=== PATIENT | female | born 1955 | race Caucasian/White ===

== ENCOUNTER → 2017-02-11 | Outpatient (CLI) | payer BC ==
[~2017-02-11] MED LIST: ASCA500 PO; ASPEC325 PO; MULT-506 PO; SNK PO; TRAM-10 PO
== END | disposition home or self-care (01) ==
LOC: C.CPL 14:35
DX: M25.562 Pain in left knee (principal)

== ENCOUNTER 2020-07-18 07:20 | Observation (INO) ==
--- NOTE | 2020-07-12 12:59 | History & Physical Report ---
Date of Service July 12, 2020 date of surgery: 07/18/20 Procedure: Right Knee Total Knee Arthroplasty Assessment & Plan (1) Arthritis of right knee: Risks and benefits of procedure discussed in detail today, patient would like to proceed with a Right total knee replacement at [facility] as scheduled. will obtain medical clearance from Dr Vaughn prior to surgery as well as obtain PATs at [facility]. Will place on ASA 81mg po bid x 1 month post op, f/u 2 weeks post op for routine post-operative care and x-ray, sooner if having any problems. will make arrangements for HHPT at the time of discharge. At this point in time, has failed conservative measures and would like to proceed with surgical intervention. The risks and benefits have been discussed including, but not limited to, risk of infection, nerve injury, stiffness, loss of motion, failure to improve, etc. Reasonable outcomes and options of treatment were discussed. An explanation of appropriate alternatives to the procedure that may be advantageous were discussed and their risks and benefits, as well as the risks and benefits of not proceeding with treatment. I offered to answer any additional inquiries concerning the treatment involved. All the patient's questions were answered. The patient is agreeable, understanding of the treatment plan and alternatives, and wishes to proceed with the treatment plan. History of Present Illness Chief Complaint: Right knee pain Primary Care Provider: Silvino Garcia MD Ms Ware is a 64 year old female who complains of right knee pain, presents for pre-op eval prior to a Right total knee replacement. She presents with pain and stiffness on the right side. She states that the symptoms have been chronic non- traumatic and states that the symptoms are moderate-severe. The pain is described as aching, sharp, shooting and throbbing. The symptoms are aggravated by ascending stairs, daily activities, kneeling, repetitive activities, sleeping on the affected side, squatting, standing, walking, weight bearing and work activities. In addition to right knee pain the patient is also experiencing clicking, crepitus, cracking, decreased mobility, difficulty bending, difficulty going to sleep, limping, nighttime awakening, pain, stiffness, tenderness and weakness. Prior NSAIDs include ibuprofen. Patient has had arthroscopic surgery Allergies Allergy/AdvReac Type Severity Reaction Status Date / Time Sulfa (Sulfonamide Allergy Mild Rash, Verified 06/22/20 14:38 Antibiotics) flushed feeling Home Medications Medication Instructions Recorded Confirmed Type ascorbic acid (vitamin C) [Vitamin 1 g PO QAM 05/04/20 06/22/20 History C] ibuprofen 800 mg PO BID PRN 05/04/20 06/22/20 History multivitamin 1 tab PO QAM 05/04/20 06/22/20 History Past Med/Surg History Medical History Arthritis History of hypothyroidism Obesity Surgical History History of appendectomy History of arthroscopy R/L knee History of colonoscopy History of hip surgery Right hip revision: 06/07/15: SAB x1 attempt at [facility] History of tonsillectomy History of total hip arthroplasty R/L Family History Father Family history of diabetes mellitus Other No family history of adverse response to anesthesia Social History Smoking Status: Never smoker Second Hand Exposure: Yes (in childhood); Do You Dip or Chew Tobacco: No; Tobacco Cessation Education Requested by Patient: No Hx Alcohol Use: No Hx Substance Use: No Preferred Language: Macedonian Communication Ability: Effective Clean Room Technician Required: No Beliefs That Will Affect Care: None Current Living Situation: Spouse Other Information That Helps Us Care for You: No Feels Safe at Home: Yes Safety Concerns: Feels Safe At This Time Assistive Devices: None Review of Systems Review of Systems: All systems reviewed & are unremarkable except as noted in HPI & below Constitutional: no fever, no chills and no sweats Respiratory: no cough and no dyspnea Cardiovascular: no chest pain, no dyspnea and no orthopnea Gastrointestinal: no abdominal pain, no nausea and no vomiting Musculoskeletal: as per Subjective / HPI Physical Exam Physical Exam: HT: 5ft 2in WT: 88.2kg BP: 138/80 Constitutional: WD/WN, vitals as above no acute distress Respiratory: normal respiratory effort, lungs clear to auscultation no respiratory distress, no labored breathing and does not use accessory muscles Cardiovascular: RRR, no murmur, no edema Gastrointestinal (Abdomen): normal bowel sounds, soft, nontender, no hepatosplenomegaly Musculoskeletal: Knee: + knee abnormal to inspection (Right Knee- ), + effusion (+1 effusion), + limited ROM of knee (ROM 0/3/110), + knee ROM with crepitation, + joint line tenderness (medial joint line) and + Gely's sign positive; no deformity, no skin erythema, no ecchymosis, no valgus laxity, no varus laxity, anterior drawer test negative, Loco's sign negative and pivot shift test negative Results & Data Results & Data ([facility]) Diagnostic Findings right knee xray showing complete loss joint space lateral compartment and patellofemoral joint with overall valgus alignment, there is also narrowing of the medial compartment. there is osteophyte formation, subchondral sclerosis noted, no loose bodies, no acute bony pathology. Large bone cyst noted proximal tibia near articular surface. overall impression tricompartmental degenerative changes to the right knee.
--- NOTE | 2020-07-13 09:28 | Anesthesiology Consultation ---
Date of Service July 13, 2020 Assessment & Plan (1) Encounter for pre-operative examination: Case initially scheduled for 06/12/20, and patient seen by Melanie Minaya PA-C in [facility] on 05/11/20. Case R/S due to COVID-19 surge capacity protocol. COVID Status: As of 06/21 nurse assessment, patient denies travel to endemic area, known exposure/sick contacts, or symptoms of COVID19. Preoperative COVID19 testing completed on 07/11 at [facility]. Chart Review Chart Review: Acceptable Risk for Surgery History Surgery Operation Date: 07/18/20 11:35 Proposed Procedures p Right Knee Total Knee Arthroplasty - Som Baumann DO Height/Weight Height: 5 ft 2 in Weight: 87.99 kg Allergies Allergy/AdvReac Type Severity Reaction Status Date / Time Sulfa (Sulfonamide Allergy Mild Rash, Verified 06/22/20 14:38 Antibiotics) flushed feeling Medications Home Medications Medication Instructions Recorded Confirmed Last Taken ascorbic acid (vitamin C) [Vitamin 1 g PO QAM 05/04/20 06/22/20 Unknown C] ibuprofen 800 mg PO BID PRN 05/04/20 06/22/20 Unknown multivitamin 1 tab PO QAM 05/04/20 06/22/20 Unknown Past Medical History Medical History Arthritis History of hypothyroidism Obesity Past Family History Family History Father Family history of diabetes mellitus Other No family history of adverse response to anesthesia Past Surgical History Surgical History History of appendectomy History of arthroscopy R/L knee History of colonoscopy History of hip surgery Right hip revision: 06/07/15: SAB x1 attempt at [facility] History of tonsillectomy History of total hip arthroplasty R/L Social History Smoking Status: Never smoker Do You Dip or Chew Tobacco: No Hx Alcohol Use: No Hx Substance Use: No substance use type: does not use Testing Laboratory Results 05/11/20 WBC: 7.03 H/H: 13.6/42 PLATELETS: 283 SODIUM: 139 POTASSIUM: 4.1 CHLORIDE: 108 CO2: 28 BUN: 16 CREATININE: 0.83 GLUCOSE: 143 PT: 10.2 PTT: 30.2 INR: 1.0 A1C: 6.1% TYPE AND SCREEN: A+, antibody - Electrocardiogram Date: 03/08/20 Findings: + NSR @ (64bpm) Prominent R (V1)- nonspecific. Old anterolateral infarct. Chest X-Ray Date: 05/11/20 Findings: + NAD Stress Test Date: 01/09/14 Type: exercise Patient exercised to 100% max predicted heart rate, 10.1 METS, EKG is negative for ischemia.
[~2020-07-18 07:20] MED LIST changes: +ACETAMINOPHEN 500 MG TAB PO SCH; -ASCA500 PO; -ASPEC325 PO; +BUPIVACAINE 0.5 % 5 MG/1 ML PF 10ML VIAL ONE; +FAMOTIDINE 20 MG TAB PO SCH; +GABAPENTIN 600 MG DOSE PO SCH; +LR 500ML BOLUS, THEN 15ML/HR IV SCH; +METOCLOPRAMIDE HCL 10 MG TABLET PO SCH; -MULT-506 PO; +ROPIVACAINE 0.5% 5 MG/ML 30 ML VIAL ONE; +ROPIVACAINE 0.5% HCL/PF 150 MG, BUPIVACAINE 0.75% MPF 20 ML, EPINEPHrine 30MG/30ML (OR ... INSTIL SCH; -SNK PO; -TRAM-10 PO; +TRANEXAMIC ACID 1,000 MG **IV Intra-op IV SCH; +TRANEXAMIC ACID 1,000 MG **IV Pre-op IV SCH; +ceFAZolin 2000MG 2,000 MG/15 ML SYR IV SCH; +dexAMETHasone 4 MG TAB PO SCH; +oxyCODONE HCL 10 MG TABCR (OxyCONTIN) PO SCH
[2020-07-18] MEDS ORDERED: MIDAZOLAM HCL 1 MG/ML 2ML VIAL ONE (08:33)
--- NOTE | 2020-07-18 08:35 | History & Physical Bridge Note ---
Date of Service July 18, 2020 History & Physical Bridge Note I have examined the patient, reviewed the History & Physical and in the interval since the performance of the History & Physical I have noted the following changes of clinical significance: no changes noted
[2020-07-18] MEDS ORDERED: PROPOFOL IV EMULSION 10 MG/ML 20 ML VIAL IV ONE (09:11)
[2020-07-18] MEDS ORDERED: ORTHO JOINT ANESTHETIC ONE (09:13)
[2020-07-18] MEDS ORDERED: BACITRACIN INJ 50,000 UNIT VIAL ONE (09:14)
[2020-07-18] MEDS ORDERED: ONDANSETRON INJ 2 MG/ML 2 ML VIAL IV PRN ×2 (09:41→13:57)
[2020-07-18] MEDS ORDERED: ATROPINE SULFATE 0.1 MG/ML 10ML SYR IV PRN (09:41)
[2020-07-18] MEDS ORDERED: HYDROmorphone INJ 0.5 MG/0.5 ML SYR IV PRN (09:41)
[2020-07-18] MEDS ORDERED: ePHEDrine sulfate 50 MG/ML AMP IV PRN (09:41)
[2020-07-18] MEDS ORDERED: KETOROLAC 30 MG/ML VIAL IV PRN (09:41)
--- NOTE | 2020-07-18 11:32 | Operative Report ---
Post Operative Report Pre & Post Diagnosis Operation Date: 07/18/20 09:50 Pre-Op Diagnosis: Osteoarthritis Right Knee Post-Op Diagnosis: Osteoarthritis Right Knee I identified the patient and participated in the time-out.: Yes Procedure Operation Date: 07/18/20 09:50 Actual Procedures p Right Knee Total Knee Arthroplasty(Right) utilizing [employer] journey to nonblock total knee arthroplasty size 4 femur 3 tibia 9 polyethylene 29 oval patella- Som Baumann DO Surgeon Som Baumann DO [employer] Consultant Guille CORNEJO Estimated Blood Loss 5 Findings Consistent with Post-Op Diagnosis Patient presents with severe end-stage tricompartmental degenerative joint disease right knee with varus alignment subchondral bone sclerosis with large proximal tibial posterior bone cyst the there are marginal osteophytes and moderate to large effusion Specimens Bone and cartilage Drains Medium bore Hemovac Anesthesia Type MAC Spinal Regional Complications none Disposition Accompanied Patient To Recovery: No Disposition: Recovery Room Indications Patient presents with severe end-stage DJD right knee no response to conservative management including physical therapy anti-inflammatories relative rest activity modification corticosteroid injection Visco supplementation patient presents for right total knee arthroplasty Description of Procedure After proper prepping and draping of the Right lower extremity anterior midline incision was made over the region of the extensor extensor mechanism after meticulous hemostasis was obtained and maintained in subcutaneous tissues a medial parapatellar incision was made The patella was subluxed lateralward the medial lateral gutter were cleaned from any hypertrophic synovitis and scar tissue of the distal femoral block was placed and the distal femoral osteotomy cut was made subsequently the chamfers anterior and posterior osteotomy cuts were made utilizing the 4-in-1 block the tibia was subsequently subluxed anteriorward medial and ateral meniscal remnants were excised in their entirety remnants of the anterior and posterior cruciate ligaments were excised in their entirety excellent exposure of the proximal tibia was obtained the tibial osteotomy guide was placed on the proximal tibial osteotomy cut was made once again the knee was irrigated with copious amounts of sterile saline solution the patella was subsequently everted lateralward thickened scar tissue around the patella was removed the patella was subsequently cut utilizing a freehand technique and was drilled prepared for final preparation and placement of patella socially flexion-extension gaps were checked and the equal and symmetric trials were placed to the appropriate femoral and tibial trials with poly-spacer being placed for equal flexion and extension gaps and full range of motion including extension to 0 and flexion to 140 the trial components after having been taken to recovery range of motion was subsequently removed meticulous hemostasis was obtained and maintained subsequently a knee block injection of joint cocktail including ropivacaine 0.5% 150 mg. Bupivacaine 0.5% epinephrine 1-200,030 mL's toradol 30 mg dexamethasone 4 mg ketamine 10 mg clonidine 100 micrograms normal saline solution 30 mg was infiltrated into the soft tissues of the posterior knee medial lateral gutters and periosteal synovium special attention was paid to protect neurovascular structures at all times subsequently trial components having been removed the knee was irrigated with sterile saline solution. debris was removed the proximal tibia was subsequently prepared and was made ready for the placement of the tibial component tibial component was also cemented and tamped into position the femoral component was subsequently placed and cemented in the position the patellar component was subsequently cemented in position because hemostasis once again obtained and maintained wound having been thoroughly irrigated with debridement and debridement lavage was performed as well as a medial parapatellar incision closed with #1 Vicryl in interrupted fashion subcutaneous was closed with #2 Vicryl skin was closed with skin clips. PA-C was necessary for prepping and drapping as well as wound closure of deep fascia Sub cutaneous tissue and skin and was necessary for the case. A sterile compressive dressing was placed patient was taken to recovery in stable condition of report dictated by Pastor I attest to the content of the Intraoperative Record and any orders documented therein. Any exceptions are noted below. I attest to the content of the Intraoperative Record and any orders documented therein. Any exceptions are noted below.
[2020-07-18] MEDS ORDERED: ONDANSETRON INJ 2 MG/ML 2 ML VIAL ONE (11:33)
--- NOTE | 2020-07-18 12:58 | XRay Report ---
RIGHT KNEE 2 VIEWS History: Right total knee arthroplasty. Degenerative arthritis. Postop. FINDINGS: The patient is status post a right total knee arthroplasty. The hardware is intact. No frac ture or dislocation. Surgical drains are in place. IMPRESSION: Right total knee arthroplasty. No evidence for hardware complication. ACT 112: Negative or not required by law. Electronically signed by: Cain Decker M.D. 07/18/2020 12:56 PM
--- NOTE | 2020-07-18 13:05 | Anesthesiology Progress Note ---
Date of Service July 18, 2020 Anesthesia Post Procedure Vital Signs Vital Signs: Temp Pulse Pulse Resp BP BP Pulse Ox 07/18/20 12:50 67 17 121/62 94 07/18/20 12:40 68 14 125/65 93 07/18/20 12:30 66 16 112/56 L 96 07/18/20 12:20 72 20 110/60 96 07/18/20 12:14 37.0 C 82 14 107/65 97 07/18/20 07:43 36.8 C 69 18 163/77 H 96 Pain Intensity Right Knee: Pain Intensity: 0 Transfer of Care Handoff Completed per policy Notes Mental Status: alert / awake / arousable Patient Amnestic to Procedure: Yes Nausea / Vomiting: adequately controlled Pain: adequately controlled Airway Patency, RR, SpO2: stable & adequate BP & HR: stable & adequate Hydration State: stable & adequate Anesthetic Complications: no major complications apparent
[2020-07-18] MEDS ORDERED: NALOXONE HCL 0.4 MG/1 ML VIAL/CARP IV PRN (13:57)
[2020-07-18] MEDS ORDERED: bisacodyL 10 MG SUPP PR PRN (13:57)
[2020-07-18] MEDS ORDERED: MAGNESIUM HYDROXIDE SUSP 30 ML UDC PO PRN (13:57)
[2020-07-18] MEDS: ACETAMINOPHEN 500 MG TAB PO SCH ×2 (14:39→21:17)
[2020-07-18] MEDS: SODIUM CHLORIDE 0.9% 1000ML 1,000 ML IV SCH (14:39)
[2020-07-18] MEDS: ceFAZolin 2000MG 2,000 MG/15 ML SYR IV SCH (17:10)
[2020-07-18] MEDS: ASPIRIN 81 MG ECTAB PO SCH (21:17)
[2020-07-18] MEDS: SENNA 8.6 MG TAB PO SCH (21:17)
[2020-07-18] MEDS: DOCUSATE SODIUM 100 MG CAP PO SCH (21:17)
[2020-07-19] MEDS: SODIUM CHLORIDE 0.9% 1000ML 1,000 ML IV SCH (00:22)
[2020-07-19] MEDS: ceFAZolin 2000MG 2,000 MG/15 ML SYR IV SCH (01:29)
[2020-07-19] MEDS: ACETAMINOPHEN 500 MG TAB PO SCH ×3 (05:59→23:35)
[2020-07-19 06:41] LABS: Hematocrit (blood only) 36.8 % (37-47); Hemoglobin 12.4 g/dL (12.0-16.0); Mean Corpuscular Hemoglobin 29.4 pg (25-34); Mean Corpuscular Hgb Conc 33.7 g/dL (32-36); Mean Corpuscular Volume 87.2 fL (80-100); Mean Platelet Volume 10.1 fL (7.4-10.4); Platelet Count 219 K/uL (130-400); RDW Coefficient of Variation 12.3 % (11.5-14.5); RDW Standard Deviation 39.4 fL (36.4-46.3); Red Blood Count 4.22 M/uL (4.2-5.4); White Blood Count 13.98 K/uL (4.8-10.8)
[2020-07-19 07:08] LABS: BUN Creatinine Ratio 17.7 (10-20); Calcium 8.4 mg/dl (8.5-10.1); Creatinine Clr Calc Pharmacy 75.4 ml/min; Est GFR (African American) 93.8; Est GFR (Non-African American) 80.9; Potassium 3.8 mmol/L (3.5-5.1)
[2020-07-19] MEDS: oxyCODONE HCL IR 5 MG TAB (IMMEDIATE RELEASE) PO PRN ×4 (07:39→20:04)
--- NOTE | 2020-07-19 07:41 | Orthopedic Progress Note ---
Date of Service July 19, 2020 Assessment & Plan (1) Arthritis of right knee: POD 1 s/p Right TKA PT/OT protocols. WBAT. DVT prophylaxis with ASA, SCD's, DARREN's Pain management as written Mild Leukocytosis - Pt asymptomatic. Likely due to preop steroids and surgical stress. DC planning - dc to home when progressing with PT Admission and Anticipated Discharge Date Admission Date: July 18, 2020 Supervising Physician Co-Signing Physician Notes Patient seen and examined. I agree with CLEMENTE Shaw's note as above. She did get lightheaded with therapy, but hemoglobin looks good at 12.4. Plan for at least another session of therapy before discharge, likely tomorrow. Subjective POD 1 Pt awake, alert. Having some pain this AM. No other complaints. Denies SOB, CP,LH. Not sure she wants to go home today but would like to do her therapy etc first before deciding. Physical Exam Physical Exam: Dressings are C/D/I; Calves soft,NT. NV intact. Toes mobile with good DF/PF of the right foot. Hemovac drainage 50ml's from the latest shift. Results & Data ([facility]) Vital Signs (Past 12 Hours) Vital Signs Temp Pulse Resp BP BP Pulse Ox 07/19/20 04:00 36.6 C 73 18 133/75 95 07/18/20 22:58 36.6 C 63 18 115/71 96 07/18/20 19:53 36.9 C 62 16 117/71 97 Laboratory Results Laboratory Results WBC 13.98 K/uL (4.8-10.8) H 07/19/20 06:31 RBC 4.22 M/uL (4.2-5.4) 07/19/20 06:31 Hgb 12.4 g/dL (12.0-16.0) 07/19/20 06:31 Hct 36.8 % (37-47) L 07/19/20 06:31 MCV 87.2 fL (80-100) 07/19/20 06:31 MCH 29.4 pg (25-34) 07/19/20 06:31 MCHC 33.7 g/dL (32-36) 07/19/20 06:31 RDW Std Deviation 39.4 fL (36.4-46.3) 07/19/20 06:31 RDW Coeff of Dwight 12.3 % (11.5-14.5) 07/19/20 06:31 Plt Count 219 K/uL (130-400) 07/19/20 06:31 MPV 10.1 fL (7.4-10.4) 07/19/20 06:31 Sodium 143 mmol/L (136-145) 07/19/20 06:31 Potassium 3.8 mmol/L (3.5-5.1) 07/19/20 06:31 Chloride 112 mmol/L (98-107) H 07/19/20 06:31 Carbon Dioxide 24 mmol/L (21-32) 07/19/20 06:31 Anion Gap 7.0 (3-11) 07/19/20 06:31 BUN 14 mg/dl (7-18) 07/19/20 06:31 Creatinine 0.78 mg/dl (0.6-1.2) 07/19/20 06:31 Est Cr Clr Drug Dosing 75.4 ml/min 07/19/20 06:31 Est GFR ( Amer) 93.8 07/19/20 06:31 Est GFR (Non-Af Amer) 80.9 07/19/20 06:31 BUN/Creatinine Ratio 17.7 (10-20) 07/19/20 06:31 Glucose 127 mg/dl (70-99) H 07/19/20 06:31 Calcium 8.4 mg/dl (8.5-10.1) L 07/19/20 06:31 Blood Type A Positive 07/18/20 07:58 Antibody Screen NEGATIVE 07/18/20 07:58
[2020-07-19] MEDS: MULTIVITAMIN TAB PO SCH (08:22)
[2020-07-19] MEDS: DOCUSATE SODIUM 100 MG CAP PO SCH ×2 (08:22→20:10)
[2020-07-19] MEDS: ASPIRIN 81 MG ECTAB PO SCH ×2 (08:22→20:10)
[2020-07-19] MEDS: HYDROmorphone INJ 0.5 MG/0.5 ML SYR IV PRN ×2 (18:40→22:49)
[2020-07-19] MEDS: SENNA 8.6 MG TAB PO SCH (20:10)
[2020-07-20] MEDS: oxyCODONE HCL IR 5 MG TAB (IMMEDIATE RELEASE) PO PRN ×6 (00:11→21:30)
[2020-07-20] MEDS: ACETAMINOPHEN 500 MG TAB PO SCH ×4 (05:44→20:46)
[2020-07-20] MEDS ORDERED: SODIUM CHLORIDE 0.9% 1000ML 500 ML IV ONE (08:09)
--- NOTE | 2020-07-20 08:31 | Orthopedic Progress Note ---
Date of Service July 20, 2020 Assessment & Plan (1) Arthritis of right knee: POD 2 s/p Right TKA PT/OT protocols. WBAT. DVT prophylaxis with ASA, SCD's, DARREN's Pain management as written Patient experiencing lightheadedness with getting out of bed. Plan for a 500 cc bolus of fluids. Recheck CBC and BMP. DC planning - dc to home when progressing with PT Admission and Anticipated Discharge Date Admission Date: July 18, 2020 Subjective Postop day 2 Patient sitting up watching TV and eating her breakfast. States that she has less energy today. Feels that her knee is stiff this morning and difficulty doing straight leg raises. We discussed that this is a fairly normal process with her stiffness and decreased ability to do SLRs. States she is having some lightheadedness when she is up. She was up in her chair for short period time before waiting to be put back into bed. States she had some moderate pain last night that required IV pain medications. No other complaints. Denies shortness of breath or chest pain. Physical Exam Physical Exam: Incision is clean, dry, intact. There is no overt erythema around the incision. Mild swelling of the knee. Calves are soft and nontender. Neurovascular intact. Toes are mobile. Results & Data ([facility]) Vital Signs (Past 12 Hours) Vital Signs Temp Pulse Resp BP Pulse Ox 07/20/20 08:24 36.3 C L 68 18 129/69 95 07/20/20 05:58 36.9 C 63 18 116/73 96 07/19/20 22:13 37.2 C 75 18 122/71 96
[2020-07-20 08:38] LABS: Hematocrit (blood only) 34.3 % (37-47); Hemoglobin 11.5 g/dL (12.0-16.0); Mean Corpuscular Hgb Conc 33.5 g/dL (32-36); Mean Corpuscular Volume 89.6 fL (80-100); Mean Platelet Volume 10.3 fL (7.4-10.4); Platelet Count 201 K/uL (130-400); RDW Coefficient of Variation 12.7 % (11.5-14.5); Red Blood Count 3.83 M/uL (4.2-5.4); White Blood Count 7.98 K/uL (4.8-10.8)
[2020-07-20 09:10] LABS: BUN Creatinine Ratio 19.6 (10-20); Calcium 8.3 mg/dl (8.5-10.1); Creatinine Clr Calc Pharmacy 75.4 ml/min; Est GFR (African American) 93.8; Est GFR (Non-African American) 80.9; Potassium 3.7 mmol/L (3.5-5.1)
[2020-07-20] MEDS: ASPIRIN 81 MG ECTAB PO SCH ×2 (09:27→20:45)
[2020-07-20] MEDS: MULTIVITAMIN TAB PO SCH (09:27)
[2020-07-20] MEDS: DOCUSATE SODIUM 100 MG CAP PO SCH ×2 (09:28→20:45)
[2020-07-20] MEDS: SENNA 8.6 MG TAB PO SCH (20:45)
[2020-07-21] MEDS: oxyCODONE HCL IR 5 MG TAB (IMMEDIATE RELEASE) PO PRN ×3 (03:40→11:38)
[2020-07-21] MEDS: ACETAMINOPHEN 500 MG TAB PO SCH (05:44)
--- NOTE | 2020-07-21 06:57 | Orthopedic Progress Note ---
Date of Service July 21, 2020 Assessment & Plan (1) Arthritis of right knee: POD 2 s/p Right TKA PT/OT protocols. WBAT. DVT prophylaxis with ASA, SCD's, DARREN's Pain management as written Repeat lab work done yesterday within normal limits. DC planning -plan for discharge to home with home health today. Admission and Anticipated Discharge Date Admission Date: July 20, 2020 Subjective Postop day 3 Patient awake and alert this morning. No complaints today. Pain is controlled. She states she had a decent night. She is looking forward to going home today. Several questions asked about showering and exercising. All questions answered to the satisfaction of the patient. Physical Exam Physical Exam: Incision is clean, dry and intact. She has a slight bit of erythema at the proximal edge of the incision. No drainage. Denies discomfort on palpation.Calves are soft and nontender. Neurovascular intact. Toes are mobile. Results & Data ([facility]) Vital Signs (Past 12 Hours) Vital Signs Temp Pulse Pulse Resp BP BP Pulse Ox 07/21/20 06:28 36.8 C 73 16 139/73 98 07/20/20 23:00 36.6 C 71 18 122/73 93
[2020-07-21] MEDS: MULTIVITAMIN TAB PO SCH (07:44)
[2020-07-21] MEDS: ASPIRIN 81 MG ECTAB PO SCH (07:44)
[2020-07-21] MEDS: DOCUSATE SODIUM 100 MG CAP PO SCH (07:44)
[2020-07-21] MEDS ORDERED: KETOROLAC 30 MG/ML VIAL IV ONE (11:00)
--- NOTE | 2020-07-24 13:54 | Discharge Summary ---
Date of Service July 24, 2020 Admission HPI Per Admitting Provider Ms Ware is a 64 year old female who complains of right knee pain, presents for pre-op eval prior to a Right total knee replacement. She presents with pain and stiffness on the right side. She states that the symptoms have been chronic non- traumatic and states that the symptoms are moderate-severe. The pain is described as aching, sharp, shooting and throbbing. The symptoms are aggravated by ascending stairs, daily activities, kneeling, repetitive activities, sleeping on the affected side, squatting, standing, walking, weight bearing and work activities. In addition to right knee pain the patient is also experiencing clicking, crepitus, cracking, decreased mobility, difficulty bending, difficulty going to sleep, limping, nighttime awakening, pain, stiffness, tenderness and weakness. Prior NSAIDs include ibuprofen. Patient has had arthroscopic surgery Admission Exam Per Admitting Provider Physical Exam: HT: 5ft 2in WT: 88.2kg BP: 138/80 Constitutional: WD/WN, vitals as above no acute distress Respiratory: normal respiratory effort, lungs clear to auscultation no respiratory distress, no labored breathing and does not use accessory muscles Cardiovascular: RRR, no murmur, no edema Gastrointestinal (Abdomen): normal bowel sounds, soft, nontender, no hepatosplenomegaly Musculoskeletal: Knee: + knee abnormal to inspection (Right Knee- ), + effusion (+1 effusion), + limited ROM of knee (ROM 0/3/110), + knee ROM with crepitation, + joint line tenderness (medial joint line) and + Gely's sign positive; no deformity, no skin erythema, no ecchymosis, no valgus laxity, no varus laxity, anterior drawer test negative, Loco's sign negative and pivot shift test negative Principal Diagnosis Right knee osteoarthritis Discharge Exam Date of Service July 21, 2020 Assessment & Plan (1) Arthritis of right knee: POD 2 s/p Right TKA PT/OT protocols. WBAT. DVT prophylaxis with ASA, SCD's, DARREN's Pain management as written Repeat lab work done yesterday within normal limits. DC planning -plan for discharge to home with home health today. Admission and Anticipated Discharge Date Admission Date: July 20, 2020 Subjective Postop day 3 Patient awake and alert this morning. No complaints today. Pain is controlled. She states she had a decent night. She is looking forward to going home today. Several questions asked about showering and exercising. All questions answered to the satisfaction of the patient. Physical Exam Physical Exam: Incision is clean, dry and intact. She has a slight bit of erythema at the proximal edge of the incision. No drainage. Denies discomfort on palpation.Calves are soft and nontender. Neurovascular intact. Toes are mobile. Results & Data ([facility]) Vital Signs (Past 12 Hours) Vital Signs Temp Pulse Pulse Resp BP BP Pulse Ox 07/21/20 06:28 36.8 C 73 16 139/73 98 07/20/20 23:00 36.6 C 71 18 122/73 93 Discharge Data Allergies Allergy/AdvReac Type Severity Reaction Status Date / Time Sulfa (Sulfonamide Allergy Mild Rash, Verified 07/18/20 07:47 Antibiotics) flushed feeling Consultations 07/18/20 13:57 Consult Case Management - Discharge Planning Routine Procedures Performed Operation Date: 07/18/20 09:50 Actual Procedures p Right Knee Total Knee Arthroplasty(Right) - Som Baumann DO Ordered Studies 07/18/20 05:00 US - OR guided needle placemen Routine Hospital Course (1) Arthritis of right knee: Patient was admitted on the above-noted date and had the above-noted surgery performed which he tolerated well. On her first postoperative day she was awake and alert having some pain in the knee that morning she had no other complaints. Dressings were clean, dry, and intact. Calves are soft nontender. Neurovascular is intact. Toes were mobile. Vital signs were stable and hemoglobin was 12.4. She had a mild leukocytosis of 13.9 which was felt to be secondary to preoperative steroids and/or surgical stress. She was charted on PT and OT protocols and continued on DVT prophylaxis and pain management. On h er second postoperative day, she was seen that morning and stated that she had less energy. She was having some lightheadedness when she was up to the bathroom etc. She had moderate pain in the previous evening which required IV pain medications. Incision was clean, dry, and intact. No erythema noted with only mild swelling around the knee. Calves remained soft and nontender and neurovascular was intact. Vital signs are stable she was afebrile. She was given some more fluids through the IV and a recheck of her labs showed the leukocytosis had resolved and hemoglobin was 11.5. BMP was essentially normal other than a glucose of 138 and calcium of 8.3. After rechecking her in the afternoon, she had done much better in PT and had ambulated the hallway and went up and down steps. At that point time though, her was 2 hours away and would not be able to get to her that afternoon. Plans were to continue PT and OT and plan for discharge the following day. By her third postoperative day, she was awake and alert. No complaints pain was controlled. She states that she had a decent night and was looking forward to going home. Vital signs were stable and she was afebrile. Incision remained clean and dry and intact. Calves are soft nontender. Neurovascular is intact. She was progressing with her physical therapy and was felt she could be discharged to home with home health services. Total Time Total Time Spent Total Time Spent (In Minutes): 5 Discharge Plan Discharge Items Patient Disposition: Home - Home Health Services Reason For Visit: Osteoarthritis Right Knee Discharge Diagnosis: Osteoarthritis right knee Activity: Per Instructions section Weightbearing: Right weightbearing Weightbearing Comment: As tolerated with walker Non-emergency contact: Surgeon Call non-emergency contact if: your pain is not controlled, your temperature is above 101.5, your wound has increased redness and your wound has increased drainage Follow-up/Referrals: Silvino Garcia MD [Primary Care Provider] - Diet: Regular Addtl Attending Provider Instructions: ACTIVITY RECOMMENDATIONS: SELF CARE INSTRUCTIONS AFTER TOTAL KNEE REPLACEMENT A. You may need to continue a physical therapy program after discharge from the hospital. There are several options available to you. Your doctor will assist you in selecting the best one for you. 1. An out-patient facility 2 to 3 times a week for therapy or home therapy. 2. Continue working on all exercises taught to you in the hospital. Your goals should be to increase bending of your knee to 90 degrees and beyond and to fully straighten your knee. B. You may progress at your own pace from walking with a walker or crutches to a cane; then to no assistive devices. C. Make walking a part of your daily routine. Be up as much as comfortable with rest periods throughout the day. Rest with leg elevation is very important. Use the ice wrap frequently for the first 3-4 weeks. D. There are no restrictions on activities. You may ride in a car, shop, participate in student ambassador and all social activities. E. Wear the long elastic stockings (DARREN hose) 20 hours a day for 2 weeks after surgery. They can be removed several times a day for laundering and for a bath. F. You may shower, no tub baths until cleared by your doctor. SPECIAL CARE INSTRUCTIONS: VERY IMPORTANT TO READ AND REVIEW A. There are a few signs you need to watch for after you are home. Call [facility] if you notice any of the followin. Increased severe knee pain. Some pain is expected especially when you exercise. 2. Increased swelling in your leg or knee; pain or swelling of the calf muscle in either lower leg. 3. Any fluid drainage from the incision. 4. Shortness of breath or chest pain. B. Please call [facility] at if you have any concerns or questions about your operation or recovery. The doctor or his nurse will return your call promptly. C. You must take antibiotics before dental work, bladder, bowel or other surgery. Your doctor will provide you with a permanent care to carry describing this precaution. IMPORTANT: * REMEMBER TO TAKE ASPIRIN, 81 MG, TWICE DAILY FOR 4 WEEKS UNLESS OTHERWISE DIRECTED. THIS IS YOUR BLOOD THINNER. * HIGH RISK PATIENTS MAY BE PRESCRIBED A STRONGER BLOOD THINNER. THIS WILL BE PROVIDED AT DISCHARGE. * CALL IF INCREASED PAIN, REDNESS, DRAINAGE OR FEVER GREATER THAT 101. * WEAR DARREN HOSE 20 HOURS PER DAY FOR 2 WEEKS. * DERMABOND Prineo- This is a mesh tape dressing that is covered with glue. It should remain in place until the incision is properly healed, usually 10-14 days. This dressing is designed to naturally slough off. You may trim the excess mesh tape as it peels off. Incision may be briefly wet in a shower. Dry immediately by blotting with a clean, dry towel. Do not bath or swim until instructed by your doctor. Do not scratch, rub, or pick at the dressing. Do not apply any topical ointments or lotions until dressing is completely removed and/or instructed by your doctor. There may be a small piece of suture material at one end of your incision. Do not pull or trim this. If it is bothersome or catching on clothing, you may cover it with a band-aid. . FOLLOW UP VISIT: If appointment is not already scheduled: Please call [facility] to make a follow-up appointment for 2 weeks after your surgery at . Stand-Alone Forms: My [facility], Opioid Pain Management, Smoking Cessation Medications and DC Order Prescriptions: New aspirin 81 mg Tablet,Delayed Release (Dr/Ec) 81 mg PO BID 30 Days Qty: 60 RF: 0 acetaminophen 500 mg Tablet 1,000 mg PO Q8 14 Days Qty: 84 RF: 0 polyethylene glycol 3350 [Miralax] 17 gram powder in packet 17 g PO DAILY PRN (Reason: constipation) Qty: 5 RF: 0 cefadroxil 500 mg capsule 500 mg PO BID Qty: 14 RF: 0 oxycodone 5 mg Tablet 5 mg PO Q4H MDD 6 PRN (Reason: pain) Qty: 30 RF: 0 Continued multivitamin Tablet 1 tab PO QAM RF: 0 ascorbic acid (vitamin C) [Vitamin C] 1,000 mg Tablet 1 g PO QAM RF: 0 Discontinued ibuprofen 200 mg Tablet 800 mg PO BID PRN (Reason: Pain) RF: 0 Discharge Orders: Discharge Order (Routine); Ordered 07/21/20 Ordered By: Guille Gonzalez/Other Patient Handouts: DVT Post Op Prevention Admission Data Admit Date/Time: 07/18/20 12:40 Attending Provider: Som Baumann Admit Provider: Som Baumann Primary Care Provider: Silvino Garcia Other Interventions: Discharge Summary Assessment (RN) Last Done: 07/21/20 07:37
== END 2020-07-21 12:05 | disposition home health service (06) ==
LOC: 3E 07:20 → ASU 07:20